=== PATIENT | female | born 1960 | race Caucasian/White ===

== ENCOUNTER 2022-04-09 12:07 | Emergency (ER) | payer BC ==
[~2022-04-09] VITALS: Ht 149.9 cm; Wt 59.9 kg
[2022-04-09] MEDS ORDERED: SODIUM CHLORIDE FLUSH 10 ML SYR IV PRN (12:30)
[2022-04-09 12:46] LABS: BASOPHILS % 0.9 % (0.0-1.0); EOSINOPHILS # (AUTO) 0.2 (0.0-0.4); HEMATOCRIT 37.9 % (34.2-44.1); HEMOGLOBIN 13.5 g/dL (12.0-16.0); LYMPHOCYTES # (AUTO) 1.7 (1.0-3.2); LYMPHOCYTES % 39.9 % (18.0-39.1); MEAN CORPUSCULAR HEMOGLOBIN 33.7 pg (28-32); MEAN CORPUSCULAR HGB CONC 35.6 g/dL (31-35); MEAN CORPUSCULAR VOLUME 94.5 fL (81-99); MONOCYTES # (AUTO) 0.5 (0.2-0.8); MONOCYTES % 12.4 % (4.4-11.3); NEUTROPHILS # (AUTO) 1.8 (2.1-6.9); NEUTROPHILS % 41.6 % (38.7-80.0); PLATELET COUNT 245 x10e3/uL (140-360); RED BLOOD COUNT 4.01 x10e6/uL (3.6-5.1); RED CELL DISTRIBUTION WIDTH 11.9 % (11.7-14.4)
[2022-04-09] MEDS ORDERED: SODIUM CHLORIDE 0.9% 100 ML ONE (12:55)
[2022-04-09] MEDS ORDERED: IOPAMIDOL 370 MG/ML 100 ML INFUS..BTL INJ ONE (12:55)
[2022-04-09 13:13] LABS: INR 0.95; PROTHROMBIN TIME 12.9 seconds (11.9-14.5)
[2022-04-09 13:14] LABS: PARTIAL THROMBOPLASTIN TIME 34.9 seconds (23.8-35.5)
[2022-04-09 13:21] LABS: ALBUMIN 4.3 g/dL (3.5-5.0); ALBUMIN/GLOBULIN RATIO 1.2 (0.8-2.0); ANION GAP 12.7 mmol/L (8-16); CALCIUM 9.1 mg/dL (8.4-10.2); CREATININE, SERUM 0.58 mg/dL (0.57-1.11); POTASSIUM 3.7 mmol/L (3.5-5.1)
[2022-04-09 14:24] LABS: CLARITY,URINE CLEAR (CLEAR); COLOR,URINE YELLOW (YELLOW); KETONES,URINE NEGATIVE (NEGATIVE); LEUKOCYTE ESTERASE ,URINE NEGATIVE (NEGATIVE); NITRITE,URINE NEGATIVE (NEGATIVE); PROTEIN,URINE DIPSTICK NEGATIVE (NEGATIVE); URINE UROBILINOGEN 0.2 mg/dL (0.2 - 1)
[2022-04-09 14:41] LABS: EPITHELIAL CELLS,URINE RARE /LPF; WBC,URINE (MAN) 0-5 /HPF (0-5)
[2022-04-09] MEDS ORDERED: ASPIRIN 325 MG TAB PO ONE (18:45)
== END 2022-04-09 22:03 | disposition home or self-care (01) ==
LOC: ER 12:14
DX: R51.9 Headache, unspecified (principal); I63.9 Cerebral infarction, unspecified; R29.810 Facial weakness; I10 Essential (primary) hypertension; E78.5 Hyperlipidemia, unspecified; Z20.822 Contact with and (suspected) exposure to COVID-19
CPT/HCPCS: 0223U; 36415; 70496; 70498; 70551; 71045; 80053; 81001; 83880; 84484; 85025; 85610; 85730; 92526; 92610; 93005; 94760; 99284; J7050; Q9967

== ENCOUNTER 2024-04-04 10:28 | Emergency (ER) | payer BC ==
[~2024-04-04] VITALS: Ht 149.9 cm; Wt 61.7 kg
[2024-04-04 10:37] VITALS: TEMP 98.4
[2024-04-04 11:13] LABS: BASOPHILS % 0.4 % (0.0-1.0); EOSINOPHILS % 0.2 % (0.0-6.0); HEMATOCRIT 38.6 % (34.2-44.1); HEMOGLOBIN 13.6 g/dL (12.0-16.0); LYMPHOCYTES # (AUTO) 1.3 (1.0-3.2); LYMPHOCYTES % 25.3 % (18.0-39.1); MEAN CORPUSCULAR HEMOGLOBIN 32.6 pg (28-32); MEAN CORPUSCULAR HGB CONC 35.2 g/dL (31-35); MEAN CORPUSCULAR VOLUME 92.6 fL (81-99); MONOCYTES # (AUTO) 0.5 (0.2-0.8); MONOCYTES % 8.5 % (4.4-11.3); NEUTROPHILS # (AUTO) 3.5 (2.1-6.9); NEUTROPHILS % 65.2 % (38.7-80.0); PLATELET COUNT 248 x10e3/uL (140-360); RED BLOOD COUNT 4.17 x10e6/uL (3.6-5.1); RED CELL DISTRIBUTION WIDTH 12.5 % (11.7-14.4); WHITE BLOOD COUNT 5.29 x10e3/uL (4.8-10.8)
[2024-04-04] MEDS: SODIUM CHLORIDE 0.9% 1000ML 1,000 ML IV STA (11:14)
[2024-04-04 11:40] LABS: INR 0.92; PROTHROMBIN TIME 12.9 seconds (11.9-14.5)
[2024-04-04 11:41] LABS: PARTIAL THROMBOPLASTIN TIME 31.9 seconds (23.8-35.5)
[2024-04-04 11:45] LABS: ALANINE AMINOTRANSFERASE 17 IU/L (0-55); ALBUMIN 4.6 g/dL (3.5-5.0); ALBUMIN/GLOBULIN RATIO 1.4 (0.8-2.0); ALKALINE PHOSPHATASE 59 IU/L (40-150); ANION GAP 17.8 mmol/L (8-16); BILIRUBIN,TOTAL 1.2 mg/dL (0.2-1.2); BLOOD UREA NITROGEN 11 mg/dL (7-26); BUN/CREATININE RATIO 17 (6-25); CARBON DIOXIDE 20 mmol/L (22-29); CHLORIDE 100 mmol/L (98-107); CREATINE KINASE 65 IU/L (29-168); CREATININE, SERUM 0.66 mg/dL (0.57-1.11); EST GLOMERULAR FILTRATION RATE 99 ML/MIN (>=60); GLUCOSE 120 mg/dL (74-118); MAGNESIUM 2.2 MG/DL (1.3-2.1); POTASSIUM 3.8 mmol/L (3.5-5.1); SODIUM 134 mmol/L (136-145); TOTAL PROTEIN 7.9 g/dL (6.5-8.1)
[2024-04-04] MEDS ORDERED: SODIUM CHLORIDE 0.9% 100 ML ONE (11:52)
[2024-04-04] MEDS ORDERED: IOPAMIDOL 370 MG/ML 100 ML INFUS..BTL INJ ONE (11:52)
[2024-04-04 12:12] LABS: THYROID STIMULATING HORMONE 0.839 uIU/mL (0.350-4.940)
[2024-04-04 12:16] LABS: TROPONIN I < 0.001 ng/mL (0-0.300)
[2024-04-04 12:42] VITALS: PULSE 74; RESP 17; O2SAT 97
== END 2024-04-04 16:14 | disposition home or self-care (01) ==
LOC: ER 10:51
DX: R20.2 Paresthesia of skin (principal); R53.1 Weakness; I10 Essential (primary) hypertension; E78.5 Hyperlipidemia, unspecified; R94.31 Abnormal electrocardiogram [ECG] [EKG]
CPT/HCPCS: 36415; 70496; 70498; 70551; 71045; 80053; 82550; 83735; 83880; 84443; 84484; 85025; 85610; 85730; 93005; 99284; J7030; J7050; Q9967

== ENCOUNTER 2024-05-04 10:00 | Outpatient (RCR) | payer BC | END 2024-05-07 | LOC: PT 10:00 | PROVIDERS: ATTEND Family Medicine | DX: M54.17 Radiculopathy, lumbosacral region (principal) ==

== ENCOUNTER → 2024-06-06 | Outpatient (RCR) | payer BC | LOC: PT 05-09 07:08 | PROVIDERS: ATTEND Family Medicine | DX: M54.17 Radiculopathy, lumbosacral region (principal) ==

== ENCOUNTER 2024-09-21 20:33 | Emergency (ER) | payer BC ==
[~2024-09-21] VITALS: Ht 149.9 cm; Wt 61.7 kg
[2024-09-21 20:52] VITALS: PULSE 72; RESP 16; TEMP 99
[2024-09-21 21:13] LABS: BASOPHILS % 0.9 % (0.0-1.0); EOSINOPHILS % 1.6 % (0.0-6.0); LYMPHOCYTES % 35.1 % (18.0-39.1); MONOCYTES % 11.5 % (4.4-11.3); NEUTROPHILS % 50.8 % (38.7-80.0); RED CELL DISTRIBUTION WIDTH 12.9 % (11.7-14.4)
[2024-09-21 21:18] LABS: LEUKOCYTE ESTERASE ,URINE NEGATIVE (NEGATIVE); PROTEIN,URINE DIPSTICK NEGATIVE (NEGATIVE); URINE UROBILINOGEN 0.2 mg/dL (0.2 - 1)
[2024-09-21 21:20] LABS: WBC,URINE (MAN) 0-5 /HPF (0-5)
[2024-09-21] MEDS: SODIUM CHLORIDE 0.9% 1000ML 1,000 ML IV STA (21:21)
[2024-09-21 21:35] LABS: EST GLOMERULAR FILTRATION RATE 92.0 ML/MIN (>=60)
[2024-09-21] MEDS ORDERED: IOPAMIDOL 370 MG/ML 100 ML INFUS..BTL INJ ONE (21:56)
[2024-09-21] MEDS: DICYCLOMINE HCL 20 MG/2 ML VIAL IM ONE (22:08)
[2024-09-21] MEDS: KETOROLAC TROMETHAMINE 30 MG/ML VIAL IV STA (22:08)
[2024-09-21] MEDS: ONDANSETRON HCL INJ 2MG/ML 2ML 2 MG/ML VIAL IV PRN (22:08)
[2024-09-21] MEDS ORDERED: DICYCLOMINE HCL20 MG PO (22:55)
[2024-09-21] MEDS ORDERED: METRONIDAZOLE500 MG PO (22:55)
[2024-09-21] MEDS ORDERED: CEFDINIR300 MG PO (22:55)
[2024-09-21 23:12] VITALS: BP 127/90; O2SAT 97
== END 2024-09-21 23:11 | disposition home or self-care (01) ==
LOC: ER 20:52
DX: R10.32 Left lower quadrant pain (principal); K57.32 Diverticulitis of large intestine without perforation or abscess without bleeding; R19.7 Diarrhea, unspecified; I10 Essential (primary) hypertension; E78.5 Hyperlipidemia, unspecified
CPT/HCPCS: 36415; 74177; 80053; 81001; 83690; 84702; 85025; 99284; J0500; J1885; J7030; Q9967